=== PATIENT | male | born 1975 | race Caucasian/White ===

== ENCOUNTER 2016-10-14 00:17 | Emergency (ER) | payer OTHER ==
[2016-10-14 02:03] VITALS: BP 133/93
== END 2016-10-14 02:03 | disposition home or self-care (01) ==
LOC: ED 00:17
DX: L03.116 Cellulitis of left lower limb (principal)

== ENCOUNTER 2017-09-13 23:37 | Emergency (ER) | payer OTHER ==
[~2017-09-13] VITALS: Ht 188 cm; Wt 107.7 kg
[2017-09-13 23:48] VITALS: Ht 188 cm; Wt 107.7 kg
[2017-09-14 02:09] VITALS: BP 130/73
== END 2017-09-14 02:09 | disposition home or self-care (01) ==
LOC: ED 23:37
DX: L25.9 Unspecified contact dermatitis, unspecified cause (principal)

== ENCOUNTER 2019-11-28 11:21 | Emergency (ER) | payer OTHER ==
[~2019-11-28] VITALS: Ht 185.4 cm; Wt 108.4 kg
[2019-11-28 11:32] VITALS: Ht 185.4 cm; Wt 108.4 kg
[2019-11-28 12:36] LABS: BASOPHIL % 0.4 % (0-2); PLATELET COUNT 212 x10^3mcL (130-400); RED CELL DISTRIBUTION WIDTH 13.5 % (11.5-14.5)
[2019-11-28 12:42] LABS: CALCIUM 9.2 mg/dL (8.5-10.1); CARBON DIOXIDE 27.1 mmol/L (21-32); CHLORIDE SERUM 102 mmol/L (98-107); CREATININE SERUM 1.1 mg/dL (0.7-1.3); GFR1 > 60 mL/min; GLUCOSE SERUM 110 mg/dL (74-106); POTASSIUM SERUM 3.7 mmol/L (3.5-5.1); SODIUM SERUM 136 mmol/L (136-145)
[2019-11-28 12:46] LABS: ALBUMIN 3.9 g/dL (3.4-5.0); ALKALINE PHOSPHATASE 72 U/L (46-116); ALT/SGPT 34 U/L (16-63); AST/SGOT 19 U/L (15-37); BILIRUBIN TOTAL 0.4 mg/dL (0.20-1.00); TOTAL PROTEIN, SERUM 7.5 g/dL (6.4-8.2)
[2019-11-28 13:55] VITALS: BP 115/77
== END 2019-11-28 13:58 | disposition home or self-care (01) ==
LOC: ED 11:21
PROVIDERS: Emergency Medicine
DX: R07.89 Other chest pain (principal); R68.84 Jaw pain
CPT/HCPCS: Q0092